=== PATIENT | female | born 1975 | race Caucasian/White ===

== ENCOUNTER 2022-12-05 04:28 | Emergency (ER) | payer BC, MEDICAID, OTHER ==
[~2022-12-05] VITALS: Ht 172.7 cm; Wt 75.0 kg
[~2022-12-05 04:28] MED LIST: PHEN-786 PO; PROC5TAB56 PO; SUMA25TA35 PO
[2022-12-05] MEDS ORDERED: ondansetron/PF 4mg/2ml inj IV ONE (04:35)
[2022-12-05] MEDS ORDERED: morphine 4 MG/ML inj SYRINge IV ONE (04:35)
[2022-12-05] MEDS ORDERED: normal saline 1000ml 1,000 ML IV ONE (04:35)
[2022-12-05 04:56] LABS: BASOPHILS # (AUTO) 0.1 X10'3 (0-0.2); BASOPHILS % (AUTO) 1.2 % (0-1); EOSINOPHILS # (AUTO) 0.1 X10'3 (0-0.9); EOSINOPHILS % (AUTO) 1.6 % (0-6); HEMATOCRIT 37.8 % (35.0-45.0); LYMPHOCYTES # (AUTO) 2.2 X10'3 (1.1-4.8); LYMPHOCYTES % (AUTO) 31.6 % (21-51); MEAN CORPUSCULAR HEMOGLOBIN 31.4 PG (27.0-31.0); MEAN CORPUSCULAR HGB CONC 34.5 g/dL (33.0-36.5); MONOCYTES # (AUTO) 0.4 X10'3 (0-0.9); MONOCYTES % (AUTO) 6.5 % (2-12); NEUTROPHILS # (AUTO) 4.1 X10'3 (1.8-7.7); NEUTROPHILS % (AUTO) 59.1 % (42-75); PLATELET COUNT 361 X10'3 (140-440); RED BLOOD COUNT 4.15 X10'6 (4.20-5.60); RED CELL DISTRIBUTION WIDTH 12.9 % (11.5-14.5); WHITE BLOOD COUNT 6.8 X10'3 (4.5-11.0)
[2022-12-05] MEDS ORDERED: ketorolac trometh. 30mg/ml inj. IV ONE (05:05)
[2022-12-05 05:16] LABS: ALANINE AMINOTRANSFERASE 17 U/L (12-78); ALBUMIN 3.4 G/DL (3.4-5.0); ALKALINE PHOSPHATASE 64 IU/L (46-116); ANION GAP 13 (8-16); ASPARTATE AMINO TRANSFERASE 18 U/L (10-37); BILIRUBIN,TOTAL 0.9 MG/DL (0.1-1.0); BLOOD UREA NITROGEN 11 MG/DL (7-18); BUN/CREATININE RATIO 12.4 (6.6-38.0); CALCIUM 9.1 MG/DL (8.5-10.1); CHLORIDE 104 MMOL/L (99-107); CREATININE 0.89 MG/DL (0.40-0.90); GLUCOSE 112 MG/DL (70-104); SODIUM 139 MMOL/L (135-145); TOTAL CARBON DIOXIDE 22.4 MMOL/L (24-32); TOTAL PROTEIN 6.9 G/DL (6.4-8.2); eGFR 68 ML/MIN
[2022-12-05 05:31] LABS: POTASSIUM 2.9 MMOL/L (3.5-5.1)
[2022-12-05] MEDS ORDERED: potassium Cl 20 mEq SR tablet PO ONE (05:35)
[2022-12-05] MEDS ORDERED: dexamethasone 4mg/ml inj IV SCH (05:38)
[2022-12-05] MEDS ORDERED: DEC4T PO (05:52)
[2022-12-05] MEDS ORDERED: DIAZ5TAB4 PO (05:52)
[2022-12-05] MEDS ORDERED: TRAM1TAB7 PO (05:52)
[2022-12-05] MEDS ORDERED: MAGN64TA8 PO (05:59)
[2022-12-05] MEDS ORDERED: POTA-206 PO (05:59)
[2022-12-05] MEDS ORDERED: LACT10SO3 PO (06:07)
[2022-12-05] MEDS ORDERED: traMADol 50MG tablet PO ONE (06:25)
[2022-12-05] MEDS ORDERED: magnesium Cl slow-release 64mg tablet PO SCH (08:00)
[2022-12-05 08:14] VITALS: BP 104/64
== END 2022-12-05 08:17 | disposition home or self-care (01) ==
LOC: ER 04:28
DX: M54.42 Lumbago with sciatica, left side (principal); G89.29 Other chronic pain; Z72.89 Other problems related to lifestyle; Z79.899 Other long term (current) drug therapy
CPT/HCPCS: 36415; 72128; 72131; 80053; 85025; 96361; 96374; 96375; 99285; J1100; J2270; J2405; J7030

== ENCOUNTER 2024-06-29 09:36 | Emergency (ER) | payer BC ==
[~2024-06-29] VITALS: Ht 172.7 cm; Wt 70.0 kg
[~2024-06-29 09:36] MED LIST changes: +DIAZ5TAB4 PO; +LACT10SO3 PO; +MAGN64TA8 PO; +POTA-206 PO
[2024-06-29] MEDS ORDERED: NAPR-56 PO (10:25)
[2024-06-29] MEDS ORDERED: METH-798 PO (10:25)
[2024-06-29] MEDS ORDERED: GABA300C PO (10:25)
[2024-06-29] MEDS: orphenadrine citrate 60mg/2ml inj. IM ONE (10:35)
[2024-06-29] MEDS: ketorolac trometh 30MG/ML vial 30 MG/ML VIAL IM ONE (10:35)
[2024-06-29] MEDS: oxyCODONE/APAP 5-325mg tablet PO ONE (10:37)
[2024-06-29 10:49] VITALS: BP 106/71; PULSE 56; RESP 18; TEMP 98; O2SAT 100
== END 2024-06-29 10:52 | disposition home or self-care (01) ==
LOC: ER 09:36
DX: M54.42 Lumbago with sciatica, left side (principal); Z79.899 Other long term (current) drug therapy
CPT/HCPCS: 96372; 99284; J1885; J2360